=== PATIENT | female | born 1950 | race Two or more races ===

== ENCOUNTER 2022-04-23 10:29 | Outpatient (REF) | payer OTHER, SELFPAY ==
--- NOTE | ~2022-04-23 | XR_ITS ---
EXAMINATION: BILATERAL HAND/WRIST CLINICAL INFORMATION: Primary osteoarthritis right hand. COMPARISON: None TECHNIQUE: 4 views each hand. FINDINGS: Right hand: There is no visible acute fracture, dislocation or subluxation seen. No bony erosive changes. There is mild reduction PIP and DIP joints but no spurring or erosive changes. The scaphoid bone is normal. Left hand/wrist. There is mild reduction PIP and DIP joints all digits with mild flexion deformity DIP joint fifth digit. There is no visible acute fracture, dislocation or subluxation seen. The soft tissues are normal. The scaphoid bone appears normal. 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 No visible acute fracture, dislocation or subluxation seen.
--- NOTE | ~2022-04-23 | XR_ITS ---
EXAMINATION: BILATERAL HAND/WRIST CLINICAL INFORMATION: Primary osteoarthritis right hand. COMPARISON: None TECHNIQUE: 4 views each hand. FINDINGS: Right hand: There is no visible acute fracture, dislocation or subluxation seen. No bony erosive changes. There is mild reduction PIP and DIP joints but no spurring or erosive changes. The scaphoid bone is normal. Left hand/wrist. There is mild reduction PIP and DIP joints all digits with mild flexion deformity DIP joint fifth digit. There is no visible acute fracture, dislocation or subluxation seen. The soft tissues are normal. The scaphoid bone appears normal. 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 No visible acute fracture, dislocation or subluxation seen.
== END 2022-04-23 10:30 | disposition home or self-care (01) ==
LOC: HO.XRAY 10:29
PROVIDERS: Visit Provider Student in an Organized Health Care Education/Training Program
DX: M19.042 Primary osteoarthritis, left hand (principal); M19.041 Primary osteoarthritis, right hand
CPT/HCPCS: 73110; 73130